=== PATIENT | male | born 1960 | race Caucasian/White ===

== ENCOUNTER → 2016-10-25 | Outpatient (CLI) | payer BC, MEDICARE ==
--- NOTE | 2016-10-25 23:27 | MR ---
EXAMINATION TYPE: MR cervical spine wo con DATE OF EXAM: 10/25/2016 COMPARISON: 02/02/2016 HISTORY: Neck pain and headaches x20 years TECHNIQUE: Multiplanar, multisequence images of the cervical spine were acquired. Cervical vertebra are fairly normal alignment. There is degenerative disc space narrowing from C3 to C7 with spurring of the endplates. There are small posterior spurs and disc herniation at C3-4 C4-5 C 5-6 and C6-7. There is no paraspinal mass. Posterior elements are intact. Cervical spinal cord has no rmal signal pattern. There is no evidence of edema. There is spinal stenosis related to posterior dis c herniation at C4-5 and C6-7 where the canal measures 7 mm. There is no evidence of a fracture. I se e no focal bone destruction. IMPRESSION: Multilevel posterior disc herniation that is increased compared to old exam. There is increased poste rior disc herniation at C6-7 and C3-4 and to a lesser extent C4-5. 7 mm spinal stenosis at C4-5 and C 6-7. C4-5 disc herniation is more towards the right side.
== END | disposition home or self-care (01) ==
LOC: RADMRIMAIN 20:57
PROVIDERS: ATTEND Nurse Practitioner Acute Care
DX: M48.02 Spinal stenosis, cervical region (principal); M50.21 Other cervical disc displacement, high cervical region
CPT/HCPCS: 72141

== ENCOUNTER 2018-09-03 10:01 | Day surgery (SDC) | payer BC, MEDICARE ==
[2018-09-01 13:53] VITALS: BMI 30.4
[~2018-09-03 10:01] MED LIST: LACTATED RINGERS 1,000 ML IV SCH; LIDOCAINE 1% 20 ML VIAL (10MG/ML) FOR IV START INTRADERMA PRN
[2018-09-03 10:31] VITALS: RESP 16; TEMP 98
[2018-09-03] MEDS ORDERED: LIDOCAINE 1% INJ 10MG/ML (20 ML MDV) ONE (10:53)
[2018-09-03] MEDS ORDERED: PROPOFOL 10 MG/ML 20 ML VIAL IV ONE (10:53)
[2018-09-03 12:05] VITALS: BP 118/78; PULSE 53
--- NOTE | 2018-09-03 12:18 | P.PCN ---
Date of Procedure: 09/03/18 Procedure(s) Performed: Procedure: 1. Esophagogastroduodenoscopy. 2. Total colonoscopy. Preoperative diagnosis: Chronic reflux symptoms and history of polyps. Postoperative diagnosis: 1. Small sliding hiatal hernia and LA grade A distal reflux esophagitis. 2. Normal colon exam with the only finding of internal hemorrhoids not bleeding at the time of this exam. Preparation: HalfLytely prep. Sedation: Was provided by anesthesia. Brief clinical history: The patient is a 58-year-old male with history of reflux and polyps. His last exam was in November 2013. This evaluation as part of his surveillance and screening. Procedure: With the patient on his left lateral decubitus position and after informed consent and adequate sedation, I passed the Olympus-GIF H190 video upper endoscope through the cricopharyngeus down the esophagus. GE junction was around 42-43 cm from the incisors and there was a very small sliding hiatal hernia and LA grade A distal esophagitis. There were no strictures or Walsh's esophagus. The endoscope was then passed into the stomach which was insufflated with air and inspected in detail including the retroflex view in the cardia. No obvious abnormalities were noted in the stomach. Pyloric channel, duodenal bulb, post bulbar area and descending duodenum appeared within normal limits. No biopsies were indicated then the endoscope was withdrawn and I proceeded to perform the colonoscopy. Perianal area did not show any fissures or fistulas. There were no masses felt on digital rectal examination. The Olympus CFH 190L video colonoscope was then inserted in the rectum in the usual fashion and advanced to the cecum. There were no polyps or tumors seen. The mucosa appeared healthy. No diverticular disease or other pathology noted. I retroflexed the endoscope in the rectum before the endoscope was withdrawn. Low-grade internal hemorrhoids were noted with no evidence of bleeding. The patient tolerated the procedure well. Plan: The patient was reassured. He was instructed to continue antireflux diet and measures and to use acid suppressive therapy [id number] as needed. I recommended repeat colonoscopy in 5 years because of the history of polyps. He will follow up with you as planned.
== END 2018-09-03 12:03 | disposition home or self-care (01) ==
LOC: ORWHC2ENDO 10:01
DX: K21.0 Gastro-esophageal reflux disease with esophagitis (principal); K44.9 Diaphragmatic hernia without obstruction or gangrene; Z12.11 Encounter for screening for malignant neoplasm of colon; Z86.010 Personal history of colon polyps; K64.8 Other hemorrhoids; I10 Essential (primary) hypertension; E78.5 Hyperlipidemia, unspecified; M19.90 Unspecified osteoarthritis, unspecified site; Z79.82 Long term (current) use of aspirin; Z79.899 Other long term (current) drug therapy
CPT/HCPCS: 43235; G0105; J2001; J2704; 45378